=== PATIENT | male | born 1955 ===

== ENCOUNTER 2024-09-04 07:00 | Day surgery (SDC) | payer OTHER ==
[2024-08-27 10:11] VITALS: BP 160/78
[~2024-09-04] VITALS: Ht 182.9 cm; Wt 95.3 kg
[~2024-09-04 07:00] MED LIST: COZAAR100 MG PO; GLIPIZIDE XL10 MG PO; LANTUS SOL100 UNIT/1; METFORMIN HCL1000 M2 PO; NORVASC5 MG PO; ROSUVASTATIN CA10 MG PO; TOPROL XL50 M1 PO
[2024-09-04] MEDS ORDERED: METRONIDAZOLE/SODIUM CHLORIDE 500 MG/100 ML PIGGYBACK IV ONE (09:14)
[2024-09-04] MEDS ORDERED: HEMOSTATIC MATRIX 1 KIT KIT TOP ONE (09:27)
[2024-09-04] MEDS ORDERED: BUPIVACAINE HCL/Mpf 0.5% 10ML VIAL ONE (09:28)
[2024-09-04] MEDS ORDERED: LIDOCAINE HCL 1%/EPINEPHRINE 20ML VIAL IJ ONE (09:28)
[2024-09-04] MEDS ORDERED: POVIDONE-IODINE 118 ML BOTT TOP ONE (09:28)
[2024-09-04] MEDS ORDERED: DIBUCAINE 30 GM TUBE ONE (09:28)
[2024-09-04] MEDS ORDERED: levoFLOXacin IN DEXTROSE 5 % 5 MG/ML PIGGYBAG IV ONE (10:15)
[2024-09-04] MEDS ORDERED: RECTICARE30 GM TOP (10:31)
[2024-09-04] MEDS ORDERED: PERCOCET 5-3251 EACH PO (10:32)
[2024-09-04] MEDS ORDERED: ONDANSETRON HCL 2 MG/ML VIAL ONE (12:00)
== END 2024-09-04 14:15 | disposition home or self-care (01) ==
LOC: CIR.AMB 07:00
PROVIDERS: ATTEND Surgery
DX: D12.9 Benign neoplasm of anus and anal canal (principal); K64.3 Fourth degree hemorrhoids; K64.4 Residual hemorrhoidal skin tags; Z88.0 Allergy status to penicillin; I10 Essential (primary) hypertension; E78.5 Hyperlipidemia, unspecified